=== PATIENT | female | born 1975 | race Caucasian/White ===

== ENCOUNTER → 2018-11-08 10:42 | Outpatient (CLI) | payer SELFPAY ==
--- NOTE | 2018-11-08 | DI.US.S_ITS ---
PROCEDURE: US PELVIC COMPLETE INDICATIONS: EXCESSIVE BLEEDING IN THE PREMENOPAUSAL STATE TECHNIQUE: Real-time scanning was performed of the pelvic organs, with image documentation. Additional endovaginal scanning was necessary due to incomplete visualization of the adnexal and endometrial structures by transabdominal scanning. COMPARISON: None. FINDINGS: Transabdominal scanning: Limited scanning through the kidneys shows no hydronephrosis. No pathologic free abdominal or pelvic fluid. Endovaginal scanning: Uterus: The uterus appears heterogeneous in echotexture without definable focal mass or fibroid. Uterus measures 9.8 x 4.5 x 5.0 cm.. The endometrium measures 5 mm in combined thickness. Ovaries: Right ovary measures 3.4 x 2.1 x 2.4 cm. No suspicious ovarian/adnexal mass lesions on the right. Left ovary measures 3.2 x 1.9 x 2.0 cm. There is a complex cystic structure in the left ovary/adnexa measuring 1.8 x 1.5 x 1.5 cm. IMPRESSION: 1. Heterogeneous uterine echotexture without focal mass or definable fibroid. Normal endometrial thickness. 2. A 1.8 cm complex cystic lesion within the left ovary/adnexa. This may represent an endometrioma, resolving physiologic or hemorrhagic cyst, or other possible neoplastic process. No internal vascularity. Recommend followup pelvic ultrasound in 6-12 weeks to document stability versus resolution. 3. Normal appearance of the right ovary/adnexa. Dictated by: Jesus Galarza M.D. on 11/08/2018 at 18:06 Approved by: Jesus Galarza M.D. on 11/08/2018 at 18:11
== END ==
PROVIDERS: Visit Provider Specialist
DX: N92.4 Excessive bleeding in the premenopausal period (principal); N83.292 Other ovarian cyst, left side
CPT/HCPCS: 76830; 76856